=== PATIENT | female | born 1980 | race Two or more races ===

== ENCOUNTER 2024-10-14 21:14 | Emergency (ER) | payer MEDICAID, OTHER ==
[~2024-10-14] VITALS: Ht 167.6 cm; Wt 71.7 kg
[2024-10-14 21:54] VITALS: TEMP 98.8
--- NOTE | 2024-10-14 23:18 | ED.PDOC ---
Musculoskeletal HPI Comments 44-YEAR-OLD FEMALE PRESENTS TO ER WITH COMPLAINTS OF RIGHT ANKLE PAIN X1 DAY. PATIENT REPORTS THAT SHE TRIPPED AND FELL AND ROLLED HER RIGHT ANKLE INWARDS YESTERDAY AT 9:00 P.M. AND HAS SINCE BEEN EXPERIENCING 10/10 PAIN WITH SWELLING TO RIGHT ANKLE AND RIGHT FOOT. DENIES HEAD INJURY/LOC. STATES THAT SHE HAS BEEN TAKING TYLENOL #3 PRESCRIBED FOR CHRONIC PAIN WITH SLIGHT RELIEF. PATIENT PRESENTS TO ER AMBULATORY ON ARRIVAL, FAVORING LEFT LEG ON AMBULATION AND NOTES SHE DOES HAVE NUMBNESS/TINGLING TO RIGHT FOOT. DENIES RIGHT TIB-FIB PAIN, RIGHT ELBOW PAIN, RIGHT KNEE PAIN, RIGHT HIP PAIN OR ANY FURTHER SYMPTOMS/COMPLAINTS Chief Complaint: Fall Injury Time Seen by MD: 21:34 Primary Care Provider: KIMMY Reviewed Notes: Nurses Notes, Medications, Allergies Allergies: Coded Allergies: Hydrocodone (Verified Allergy, Unknown, 10/14/24) Penicillins (Verified Allergy, Unknown, 10/14/24) Information Source: Patient Mode of Arrival: Ambulatory Past Medical History Past Medical History (Other): CHRONIC NECK PAIN ULCERATIVE COLITIS NEUROPATHY Surgical History: Hysterectomy ARTIFICIAL CANDY MAKER History: No Pertinent ARTIFICIAL CANDY MAKER History Family History Family History: Unknown Social History Smoker: Cigarettes, Less Than 1 Pack/Day Alcohol: Denies ETOH Use Drugs: Marijuana Lives In: Home Constitutional: denies: chills, diaphoresis, fatigue, fever, malaise, sweats, weakness, others EENTM: denies: blurred vision, double vision, ear bleeding, ear discharge, ear drainage, ear pain, ear ringing, eye pain, eye redness, hearing loss, mouth pain, mouth swelling, nasal discharge, nose bleeding, nose congestion, nose pain, photophobia, tearing, throat pain, throat swelling, voice changes, others Respiratory: denies: cough, hemoptysis, orthopnea, SOB at rest, shortness of breath, SOB with excertion, stridor, wheezing, others Cardiovascular: denies: chest pain, dizzy spells, diaphoresis, Dyspnea on exertion, edema, irregular heart beat, left arm pain, lightheadedness, palpitations, PND, syncope, others Gastrointestinal: denies: abdomen distended, abdominal pain, blood streaked bowels, constipated, diarrhea, dysphagia, difficulty swallowing, hematemesis, melena, nausea, poor appetite, poor fluid intake, rectal bleeding, rectal pain, vomiting, others Genitourinary: denies: abnormal vagina bleeding, burning, dyspareunia, dysuria, flank pain, frequency, hematuria, incontinence, pain, , vagina discharge, urgency, others Neurological: denies: dizziness, fainting, headache, left sided numbness, left sided weakness, numbness, paresthesia, pre-existing deficit, right sided numbness, right sided weakness, seizure, speech problems, tingling, tremors, weakness, others Musculoskeletal: reports: others ( STATED IN HPI) Integumetry: reports: others ( STATED IN HPI) Allergic/Immunocompromised: denies: Difficulty Healing, Frequent Infections, Hives, Itching, others Hematologic/Lymphatic: denies: anemia, blood clots, easy bleeding, easy bruising, swollen glands, others Endocrine: denies: excessive hunger, excessive sweating, excessive thirst, excessive urination, flushing, intolerance to cold, intolerance to heat, unexplained weight gain, unexplained weight loss, others Psychiatric: denies: anxiety, bipolar disorder, depression, hopeless, panic disorder, schizophrenia, sleepless, suicidal, others Physical Exam General Appearance: No Apparent Distress HEENT: PERRL/EOMI Neck: Full Range of Motion, Non-Tender, Normal Respiratory: Chest Non-Tender, Lungs Clear, No Accessory Muscle Use, No Respiratory Distress, Normal Breath Sounds Cardiovascular: No Murmur, No Gallop, Regular Rate/Rhythm Breast Exam: Deferred Gastrointestinal: NOT DONE Genitalia: Deferred Pelvic: Deferred Rectal: Deferred Extremities: No calf tenderness, Normal capillary refill, Normal range of motion Musculoskeletal : Extremity Location: Ankle (TTP/MILD SWELLING/ECCHYMOSIS NOTED TO RIGHT LATERAL MALLEOLUS AND TO LATERAL DORSAL SURFACE OF RIGHT FOOT. NO FURTHER SKIN CHANGES NOTED. PULSES INTACT. NO OTHER TTP TO RIGHT LOWER EXTREMITY NOTED. PATIENT FAVORS LEFT LEG ON AMBULATION DUE TO PAIN LOCALIZED TO RIGHT LATERAL MALLEOLUS AND TO LATERAL DORSAL SURFACE OF RIGHT FOOT) Neurologic: Alert, box hinge and lock attacher II-XII nml as Tested, No Motor Deficits, Normal Affect, Normal Mood, No Sensory Deficits Cerebellar Function: Normal Reflexes: Normal Skin: Dry, Warm Peripheral Pulses: 2+ femoral (R), 2+ femoral (L), 2+ dorsalis pedis (R), 2+ dorsalis pedis (L), 2+ Radial (R), 2+ Radial (L), 2+ Brachial (R), 2+ Brachial (L) Lymphatic: No Adenopathy Was a procedure done? Was a procedure done?: No Sedation Sedation?: No Differential Diagnosis EXT Differential Diagnosis: Dislocation, Laceration, Neurovascular injury X-Ray, Labs, Meds, VS Vital Signs Date Time Temp Pulse Resp B/P (MAP) Pulse Ox O2 Delivery O2 Flow Rate FiO2 10/14/24 23:33 99 18 137/79 10/14/24 21:20 98.8 99 18 137/79 (98) 98 Current Medications Medications (Trade) Dose Ordered Sig/Beatrice Route Start Time Stop Time Status Last Admin Morphine Sulfate 2 mg ONCE ONCE IM 10/14/24 23:15 10/14/24 23:16 DC 10/14/24 23:33 Ondansetron HCl (Zofran Po) 4 mg ONCE ONCE PO 10/14/24 23:15 10/14/24 23:16 DC 10/14/24 23:29 PATIENT: MARTHA PANTOJACCT: [id number]: [id number] : 1980 LOC: ER ROOM / BED: / AGE / SEX: 44 / F ADM STATUS: REG ER SERVICE [id number] ORDERING PHYSICIAN: LILIA HARDING PROCEDURE(s): RANKL - R ANKLE 3 VIEW REASON: RIGHT ANKLE PAIN ORDER NUMBER(s): [id number], ACCESSION NUMBER(s): [id number] CLINICAL INDICATION: RIGHT ANKLE PAIN TECHNIQUE: XY R ANKLE 3 VIEW Comparison: None FINDINGS/IMPRESSION: : There is increased distance of the lateral aspect of the tibiotalar joint of indeterminate chronicity. There are well corticated osseous densities projecting inferior to the distal tip of the fibula and medial malleolus likely sequelae of remote trauma. Soft tissue swelling overlies the lateral malleolus. ATED BY: DOROTHY SILVA MD DICTATED DATE/TIME: 10/15/2417 SIGNED BY: DOROTHY SILVA MD SIGNED DATE/TIME: 10/15/2417 CC: PATIENT: IKE PANTOJA ACCT: [id number] UNIT: [id number] : 1980 LOC: ER ROOM / BED: / AGE / SEX: 44 / F ADM STATUS: REG ER SERVICE 03 ORDERING PHYSICIAN: LILIA HARDING PROCEDURE(s): RFOOT - R FOOT 3 VIEW XRAY REASON: RIGHT FOOT PAIN ORDER NUMBER(s): [id number], ACCESSION NUMBER(s): [id number] CLINICAL INDICATION: RIGHT FOOT PAIN TECHNIQUE: XY R FOOT 3 VIEW XRAY Comparison: None FINDINGS/IMPRESSION: : There is no evidence of acute fracture or dislocation. Soft tissue swelling about the anterior ankle. ATED BY: DOROTHY SILVA MD DICTATED DATE/TIME: 10/15/2418 SIGNED BY: DOROTHY SILVA MD SIGNED DATE/TIME: 10/15/2418 CC: RIGHT FOOT AND RIGHT ANKLE X-RAY REVIEWED MORPHINE 2 MG IM ORDERED ZOFRAN 4 MG P.O. ORDERED RIGHT POSTERIOR SHORT-LEG SPLINT APPLIED CRUTCHES ORDERED, PATIENT EDUCATED ON PROPER USE. WAS ADVISED ON USE AT ALL TIMES PATIENT HAD IMPROVEMENT IN SYMPTOMS, NEUROVASCULARLY INTACT AND IN NO DISTRESS PRIOR TO DISCHARGE ADVISED ON REST/NO STRENUOUS ACTIVITY, ELEVATION AND ALTERNATE ICE ON/OFF NEEDED FOR PAIN/SWELLING ADVISED TO CONTINUE PAIN MEDICATIONS CURRENTLY PRESCRIBED PATIENT PROVIDED COPIES OF X-RAY IMAGING REPORTS ADVISED TO FOLLOW UP WITH PCP AND ORTHOPEDICS IN 1-2 DAYS PATIENT VERBALIZED UNDERSTANDING AND AGREEABLE WITH CURRENT PLAN OF CARE ADVISED TO RETURN TO ER IMMEDIATELY IF SYMPTOMS WORSEN Images Reviewed?: Images reviewed and evaluated by me Time of 1ST Reevaluation: 23:12 Reevaluation 1ST: N/A Time of 2ND Reevaluation: 00:28 Reevaluation 2ND: Improved Patient Education/Counseling: Diagnosis, Treatment, Prognosis, Need For Follow Up Family Education/Counseling: No Family Present Departure 1 Departure Time of Disposition: 00:30 Impression: Primary Impression: Ankle fracture, right Qualified Codes: S82.891A - Other fracture of right lower leg, initial encounter for closed fracture Disposition: HOME / SELF CARE / HOMELESS Condition: Stable Discharged With: Other (NIECE) Critical Care Note Critical Care Time?: No Stability Stability form required: No Heart Score Heart Score: Heart Score Response (Comments) Value History N/A 0 EKG N/A 0 Age N/A 0 Risk Factors N/A 0 Troponin N/A 0 Total 0 LILIA HARDING Oct 14, 2024 23:18
[2024-10-14] MEDS: ONDANSETRON ODT 4 MG TAB PO ONE (23:29)
[2024-10-14] MEDS: MORPHINE SULFATE INJ 2 MG/ml SYRG IM ONE (23:33)
[2024-10-15 00:03] VITALS: BP 129/85; PULSE 85; RESP 18; O2SAT 98
--- NOTE | 2024-10-15 00:20 | DVH ---
CLINICAL INDICATION: RIGHT ANKLE PAIN TECHNIQUE: XY R ANKLE 3 VIEW Comparison: None FINDINGS/IMPRESSION: : There is increased distance of the lateral aspect of the tibiotalar joint of indeterminate chronicity . There are well corticated osseous densities projecting inferior to the distal tip of the fibula and m edial malleolus likely sequelae of remote trauma. Soft tissue swelling overlies the lateral malleolus.
--- NOTE | 2024-10-15 00:21 | DVH ---
CLINICAL INDICATION: RIGHT FOOT PAIN TECHNIQUE: XY R FOOT 3 VIEW XRAY Comparison: None FINDINGS/IMPRESSION: : There is no evidence of acute fracture or dislocation. Soft tissue swelling about the anterior ankle.
== END 2024-10-15 01:11 | disposition home or self-care (01) ==
LOC: ER 21:14
DX: S82.891A Other fracture of right lower leg, initial encounter for closed fracture (principal); F17.210 Nicotine dependence, cigarettes, uncomplicated; G89.29 Other chronic pain; M54.2 Cervicalgia; Z88.0 Allergy status to penicillin; Z88.5 Allergy status to narcotic agent; Z90.710 Acquired absence of both cervix and uterus; W01.0XXA Fall on same level from slipping, tripping and stumbling without subsequent striking against object, initial encounter; Y93.89 Activity, other specified; Y92.89 Other specified places as the place of occurrence of the external cause; Y99.8 Other external cause status
CPT/HCPCS: 29515; 73610; 73630; 96372; 99284; J2270; Q0162